=== PATIENT | female | born 1985 | race Two or more races ===

== ENCOUNTER → 2016-06-11 | Outpatient (CLI) | payer MEDICAID ==
[2016-06-11 10:33] LABS: Basophils # (auto) 0 uL; Basophils % (auto) 0.4 % (0.0-2.0); Eosinophils # (auto) 0.3 uL; Eosinophils % (auto) 2.4 % (0.0-7.0); Hematocrit 39.8 % (36.0-46.0); Hemoglobin 12.8 g/dL (12.2-16.2); Lymphocytes # (auto) 2.1 uL; Lymphocytes % (auto) 16.5 % (10.0-50.0); Mean Corpuscular Hemoglobin 27.7 pg (28.0-32.0); Mean Corpuscular Hgb Conc. 32.2 g/dL (32.0-36.0); Mean Platelet Volume 9.3 fL (7.4-10.4); Monocytes # (auto) 0.5 uL; Monocytes % (auto) 3.7 % (0.0-12.0); Neutrophils # (auto) 9.8 uL; Platelet Count (auto) 284 10^3/uL (140-450); Red Cell Distribution Width 13.4 % (11.6-16.0); White Blood Cell 12.7 10^3/uL (4.4-10.8)
== END | disposition home or self-care (01) ==
LOC: LAB 09:57
PROVIDERS: ATTEND Obstetrics & Gynecology
DX: Z34.80 Encounter for supervision of other normal pregnancy, unspecified trimester (principal)
CPT/HCPCS: 36415; 82951; 85025; 86703; G0434

== ENCOUNTER 2016-06-12 10:35 | Observation (INO) | payer MEDICAID ==
[~2016-06-12] VITALS: Ht 152.4 cm; Wt 63.5 kg
[2016-06-12] MEDS ORDERED: PREN-96 PO (11:07)
[2016-06-12] MEDS ORDERED: TERBUTALINE SULFATE 1 MG/ML 1ML VIAL SC ONE (11:30)
== END 2016-06-12 12:35 | disposition home or self-care (01) | DRG 566 ==
LOC: LDRP 10:35
PROVIDERS: ADMIT Obstetrics & Gynecology; ATTEND Obstetrics & Gynecology
DX: O26.893 Other specified pregnancy related conditions, third trimester (principal); R10.30 Lower abdominal pain, unspecified; Z3A.29 29 weeks gestation of pregnancy
CPT/HCPCS: 59025; 76815; 81002; 96372; G0378; J3105; 96361

== ENCOUNTER 2016-06-25 07:24 | Observation (INO) | payer MEDICAID ==
[~2016-06-25 07:24] MED LIST: PREN-96 PO
[2016-06-25 19:00] LABS: Urine Bilirubin Negative (Negative); Urine Blood Negative /uL (Negative); Urine Color Yellow (Yellow); Urine Glucose Normal (Normal); Urine Ketone Negative (Negative); Urine Nitrite Negative (Negative); Urine RBC 4 /hpf (0 - 4); Urine Squamous Epithelial Cell FEW /hpf (<5); Urine Urobilinogen Normal (Negative)
== END 2016-06-25 19:18 | disposition home or self-care (01) | DRG 566 ==
LOC: LDRP 07:24
PROVIDERS: ADMIT Specialist; ATTEND Specialist
DX: O62.9 Abnormality of forces of labor, unspecified (principal); O23.43 Unspecified infection of urinary tract in pregnancy, third trimester; Z3A.30 30 weeks gestation of pregnancy
CPT/HCPCS: 59025; 81001; 81002; G0378; G0434

== ENCOUNTER 2016-06-27 11:50 | Observation (INO) | payer MEDICAID ==
[~2016-06-27] VITALS: Ht 170.2 cm; Wt 65.8 kg
[2016-06-27] MEDS ORDERED: TERBUTALINE SULFATE 1 MG/ML 1ML VIAL SC ONE ×2 (14:01→14:15)
== END 2016-06-27 15:15 | disposition home or self-care (01) | DRG 566 ==
LOC: LDRP 11:50
PROVIDERS: ADMIT Obstetrics & Gynecology; ATTEND Obstetrics & Gynecology
DX: O36.8130 Decreased fetal movements, third trimester, not applicable or unspecified (principal); O62.9 Abnormality of forces of labor, unspecified; Z3A.31 31 weeks gestation of pregnancy
CPT/HCPCS: 59025; 76818; 81002; 96372; G0378; G0434; J3105; 96365; 96366

== ENCOUNTER 2016-07-02 10:00 | Observation (INO) | payer MEDICAID ==
[2016-07-02 10:41] LABS: Urine RBC None Seen /hpf (0 - 4)
[2016-07-02 11:24] LABS: Urine Bilirubin Negative (Negative); Urine Blood Negative /uL (Negative); Urine Color Yellow (Yellow); Urine Glucose Normal (Normal); Urine Ketone Negative (Negative); Urine Nitrite Negative (Negative); Urine Squamous Epithelial Cell FEW /hpf (<5); Urine Urobilinogen Normal (Negative); Urine pH 6.5 (5.0-8.0)
== END 2016-07-02 11:30 | disposition home or self-care (01) | DRG 563 ==
LOC: LDRP 10:00
PROVIDERS: ADMIT Obstetrics & Gynecology; ATTEND Obstetrics & Gynecology
DX: O60.03 Preterm labor without delivery, third trimester (principal); Z3A.31 31 weeks gestation of pregnancy
CPT/HCPCS: 76818; 81001; G0378; G0434; 59025; 81002

== ENCOUNTER 2016-07-05 10:50 | Observation (INO) | payer MEDICAID | END 2016-07-05 13:50 | disposition home or self-care (01) | DRG 566 | LOC: LDRP 10:50 | PROVIDERS: ADMIT Specialist; ATTEND Specialist | DX: O24.419 Gestational diabetes mellitus in pregnancy, unspecified control (principal); Z3A.00 Weeks of gestation of pregnancy not specified | CPT/HCPCS: 59025; 81002; G0378 ==

== ENCOUNTER 2016-07-14 10:10 | Observation (INO) | payer MEDICAID | END 2016-07-14 11:05 | disposition home or self-care (01) | DRG 566 | LOC: LDRP 10:10 | PROVIDERS: ADMIT Specialist; ATTEND Specialist | DX: O36.8130 Decreased fetal movements, third trimester, not applicable or unspecified (principal); Z3A.33 33 weeks gestation of pregnancy | CPT/HCPCS: 59025; 81002; G0378 ==

== ENCOUNTER 2016-07-17 10:15 | Observation (INO) | payer MEDICAID ==
[2016-07-17 11:48] LABS: Urine Bilirubin Negative (Negative); Urine Blood Negative /uL (Negative); Urine Color Yellow (Yellow); Urine Glucose Normal (Normal); Urine Ketone Negative (Negative); Urine Mucus FEW (None Seen); Urine Nitrite Negative (Negative); Urine RBC 2 /hpf (0 - 4); Urine Squamous Epithelial Cell MOD /hpf (<5); Urine Urobilinogen Normal (Negative); Urine pH 5.5 (5.0-8.0)
== END 2016-07-17 11:55 | disposition home or self-care (01) | DRG 955 ==
LOC: LDRP 10:15
PROVIDERS: ADMIT Specialist; ATTEND Specialist
DX: O26.899 Other specified pregnancy related conditions, unspecified trimester (principal); Z3A.00 Weeks of gestation of pregnancy not specified
CPT/HCPCS: 59025; 76818; 81001; 81002; G0378

== ENCOUNTER → 2016-07-24 | Outpatient (CLI) | payer MEDICAID ==
[2016-07-24 11:47] LABS: Basophils # (auto) 0.1 uL; Basophils % (auto) 0.4 % (0.0-2.0); DEFINITIVE VIEW TRANSMISSION; Eosinophils # (auto) 0.9 uL; Eosinophils % (auto) 6.2 % (0.0-7.0); Hematocrit 37.5 % (36.0-46.0); Hemoglobin 12.6 g/dL (12.2-16.2); Lymphocytes # (auto) 2.1 uL; Lymphocytes % (auto) 14.5 % (10.0-50.0); Mean Corpuscular Hemoglobin 27.5 pg (28.0-32.0); Mean Corpuscular Hgb Conc. 33.6 g/dL (32.0-36.0); Mean Corpuscular Volume 81.9 fL (80.0-100.0); Mean Platelet Volume 9.4 fL (7.4-10.4); Monocytes # (auto) 0.7 uL; Monocytes % (auto) 5.2 % (0.0-12.0); Neutrophils # (auto) 10.6 uL; Neutrophils % (auto) 73.7 % (37.0-80.0); Platelet Count (auto) 253 10^3/uL (140-450); Red Cell Distribution Width 13.5 % (11.6-16.0); White Blood Cell 14.4 10^3/uL (4.4-10.8)
== END | disposition home or self-care (01) ==
LOC: LAB 11:12
PROVIDERS: ATTEND Obstetrics & Gynecology
DX: Z34.80 Encounter for supervision of other normal pregnancy, unspecified trimester (principal); Z11.3 Encounter for screening for infections with a predominantly sexual mode of transmission; N76.0 Acute vaginitis
CPT/HCPCS: 36415; 85025; 87081

== ENCOUNTER 2016-08-08 12:05 | Observation (INO) | payer MEDICAID | END 2016-08-08 13:00 | disposition home or self-care (01) | DRG 955 | LOC: LDRP 12:05 | PROVIDERS: ADMIT Specialist; ATTEND Specialist | DX: O26.899 Other specified pregnancy related conditions, unspecified trimester (principal); R10.9 Unspecified abdominal pain; O76 Abnormality in fetal heart rate and rhythm complicating labor and delivery; Z3A.00 Weeks of gestation of pregnancy not specified | CPT/HCPCS: 59025; 76818; 81002; G0378 ==

== ENCOUNTER 2016-08-15 10:00 | Observation (INO) | payer MEDICAID | END 2016-08-15 11:12 | disposition home or self-care (01) | DRG 566 | LOC: LDRP 10:00 | PROVIDERS: ADMIT Specialist; ATTEND Specialist | DX: O99.413 Diseases of the circulatory system complicating pregnancy, third trimester (principal); Z3A.38 38 weeks gestation of pregnancy | CPT/HCPCS: 59025; 76818; 81002; G0378 ==

== ENCOUNTER 2016-08-21 08:00 | Inpatient (IN) | payer MEDICAID ==
[~2016-08-21] VITALS: Ht 170.2 cm; Wt 72.1 kg
[2016-08-21] VITALS (7 sets, daily range): BP systolic 101–111; BP diastolic 55–60
[2016-08-21] MEDS ORDERED: LACT. RINGERS/OXYTOCIN 20UNITS 1,000 ML IV SCH (08:27)
[2016-08-21] MEDS: LACTATED RINGER'S 1,000 ML IV SCH ×2 (08:27→16:27)
[2016-08-21] MEDS ORDERED: DERMOPLAST 60ML BOTTLE TOP PRN (08:30)
[2016-08-21] MEDS ORDERED: WITCH HAZEL-GLYCERIN PAD TOP PRN (08:30)
[2016-08-21] MEDS ORDERED: LIDOCAINE 2%HCL (LOCAL ANESTH.) INJ 20ML MDV IJ PRN (08:30)
[2016-08-21] MEDS ORDERED: PHISODERM TOP SOLN 240ML BTL TOP PRN (08:30)
[2016-08-21] MEDS ORDERED: NALBUPHINE HCL 10 MG/1ml INJECTION IV PRN (08:30)
[2016-08-21] MEDS ORDERED: ONDANSETRON HCL 4 MG/2 ML VIAL IV PRN (08:45)
[2016-08-21 09:08] LABS: Basophils # (auto) 0 uL; Basophils % (auto) 0.3 % (0.0-2.0); Eosinophils # (auto) 0.4 uL; Eosinophils % (auto) 2.8 % (0.0-7.0); Hemoglobin 12.4 g/dL (12.2-16.2); Lymphocytes % (auto) 12.2 % (10.0-50.0); Mean Corpuscular Hemoglobin 27.3 pg (28.0-32.0); Mean Corpuscular Hgb Conc. 33.5 g/dL (32.0-36.0); Mean Corpuscular Volume 81.6 fL (80.0-100.0); Mean Platelet Volume 9.5 fL (7.4-10.4); Monocytes # (auto) 0.8 uL; Monocytes % (auto) 4.7 % (0.0-12.0); Platelet Count (auto) 271 10^3/uL (140-450); Red Cell Distribution Width 14.1 % (11.6-16.0); White Blood Cell 16.2 10^3/uL (4.4-10.8)
[2016-08-21 09:37] LABS: Urine Bilirubin Negative (Negative); Urine Color Yellow (Yellow); Urine Glucose Normal (Normal); Urine Ketone Negative (Negative); Urine Nitrite Negative (Negative); Urine RBC 1 /hpf (0 - 4); Urine Squamous Epithelial Cell MOD /hpf (<5); Urine Urobilinogen Normal (Negative)
[2016-08-21 09:38] LABS: Urine Blood 2+ /uL (Negative)
[2016-08-21 09:40] LABS: Partial Thromboplastin Time 26.1 sec (22.64-33.71); Prothrombin Time 9.4 sec (9.37-12.3)
[2016-08-21 09:44] LABS: INR 0.87 (0.9-1.15)
[2016-08-21] MEDS ORDERED: fentaNYL W ROPIVACAINE 150 ML EPI SCH ×2 (09:45→11:15)
[2016-08-21] MEDS ORDERED: fentaNYL CITRATE 100 MCG/2 ML VL IV ONE ×2 (09:45→11:15)
[2016-08-21] MEDS ORDERED: LIDOCAINE HCL 2 %PF INJ 10ML AMP IJ ONE (09:45)
[2016-08-21] MEDS ORDERED: NALOXONE HCL 0.4 MG/ML VIAL IV ONE ×2 (09:45→11:15)
[2016-08-21] MEDS ORDERED: ePHEDrine SULFATE 50 MG/ML AMP IV ONE ×2 (09:45→11:15)
[2016-08-21 09:49] LABS: Albumin 2.5 g/dL (3.4-5.0); BUN/Creatinine Ratio 21.8; Bilirubin, Total 0.5 mg/dL (0.2-1.0); Calcium 8.8 mg/dL (8.5-10.1); Potassium 3.6 mmol/L (3.5-5.1); Total Protein 6.9 g/dL (6.4-8.2)
[2016-08-21] MEDS: IBUPROFEN 600 MG TAB PO PRN ×2 (17:38→21:00)
[2016-08-21] MEDS: DOCUSATE CALCIUM 240 MG CAP PO SCH (17:38)
[2016-08-21] MEDS ORDERED: LORazepam 0.5 MG TAB PO ONE (20:15)
[2016-08-22 00:05] VITALS: BP 115/60
[2016-08-22] MEDS: IBUPROFEN 600 MG TAB PO PRN ×2 (01:30→04:40)
[2016-08-22 04:00] VITALS: BP 105/58
[2016-08-22 07:08] VITALS: BP 108/67
[2016-08-22] MEDS: DOCUSATE CALCIUM 240 MG CAP PO SCH (09:31)
== END 2016-08-22 10:20 | disposition home or self-care (01) | DRG 560 ==
LOC: OBSVTOIN 08:00 → LDRP 08:00
PROVIDERS: ADMIT Specialist; ATTEND Specialist
PROC: 10E0XZZ Delivery of Products of Conception, External Approach (ICD-10-PCS; principal; 2016-08-21)
PROC: 00HU33Z Insertion of Infusion Device into Spinal Canal, Percutaneous Approach (ICD-10-PCS; 2016-08-21)
PROC: 3E0R3CZ (ICD-10-PCS; 2016-08-21)
PROC: 0HQ9XZZ Repair Perineum Skin, External Approach (ICD-10-PCS; 2016-08-21)
DX: O70.0 First degree perineal laceration during delivery (principal); J45.909 Unspecified asthma, uncomplicated; Z37.0 Single live birth; Z3A.39 39 weeks gestation of pregnancy; O99.52 Diseases of the respiratory system complicating childbirth; O69.81X0 Labor and delivery complicated by cord around neck, without compression, not applicable or unspecified
CPT/HCPCS: 36415; 59025; 59409; 80053; 80307; 81001; 81002; 85025; 85610; 85730; 86850; 86900; 86901; 96366; J2405; J2590; J3010

== ENCOUNTER 2017-05-28 12:03 | Emergency (ER) | payer MEDICAID ==
[~2017-05-28] VITALS: Ht 170.2 cm; Wt 73.9 kg
[2017-05-28 13:27] LABS: Urine Bacteria FEW /hpf (None Seen); Urine Mucus FEW (None Seen); Urine Specific Gravity 1.027 (1.001-1.035); Urine WBC 13 /hpf (0 - 5)
[2017-05-28 13:39] LABS: Urine Blood 2+ /uL (Negative)
[2017-05-28 15:12] VITALS: BP 110/76
== END 2017-05-28 15:16 | disposition home or self-care (01) ==
LOC: ER 12:03
DX: O23.41 Unspecified infection of urinary tract in pregnancy, first trimester (principal); Z3A.01 Less than 8 weeks gestation of pregnancy; Z88.0 Allergy status to penicillin; Z91.041 Radiographic dye allergy status
CPT/HCPCS: 36415; 81001; 84702; 86901